=== PATIENT | male | born 1955 | race Caucasian/White ===

== ENCOUNTER 2019-12-10 02:39 | Inpatient (IN) ==
[2019-12-10] MEDS ORDERED: 0.9 % Sodium Chloride 1,000 ML IVC ONE (03:11)
[2019-12-10] MEDS ORDERED: Ipratropium/Albuterol Neb 3 ML IH ONE (03:12)
[2019-12-10] MEDS ORDERED: methylPREDNISolone 125 MG/2 ML VIAL IVP ONE (03:12)
[2019-12-10 03:21] LABS: Basophils % 0.3 %; Eosinophils % 0.3 %; Hematocrit 49.1 % (37.5-50.1); Immature Granulocytes % 0.3 % (0-4); Lymphocytes # 0.2 K/mcL (0.6-4.6); Lymphocytes % 2.1 %; Mean Corpuscular HGB Conc 32.6 g/dL (31.6-35.5); Mean Corpuscular Hemoglobin 29.7 pg (28.0-33.3); Mean Corpuscular Volume 91.1 fL (83.0-100.0); Mean Platelet Volume 10.3 fL (9.4-12.4); Monocytes # 0.2 K/mcL (0.0-1.3); Monocytes % 2.3 %; Neutrophils # 8.2 K/mcL (1.6-8.9); Platelet Count 156 K/mcL (140-400); Red Blood Count 5.39 M/mcL (4.19-5.50); Red Cell Distribution Width 13.9 % (11.5-14.5); Segmented Neutrophils % 94.7 %; White Blood Count 8.7 K/mcL (4.3-11.1)
[2019-12-10 03:42] LABS: Alanine Aminotransferase 20 Units/L (7-52); Albumin 4.1 g/dL (3.5-5.7); Albumin/Globulin Ratio 1.4 (1.1-2.2); Alkaline Phosphatase 93 Units/L (34-104); Aspartate Amino Transferase 18 Units/L (13-39); BUN/Creatinine Ratio 18 (6-26); Bilirubin,Direct 0.3 mg/dL (0.0-0.2); Bilirubin,Indirect 0.6 mg/dL (0.0-1.0); Bilirubin,Total 0.9 mg/dL (0.3-1.0); Blood Urea Nitrogen 18 mg/dL (8-23); Calcium 9.5 mg/dL (8.6-10.3); Carbon Dioxide 25 mEq/L (23-29); Chloride 99 mEq/L (98-107); Glucose 207 mg/dL (70-105); Magnesium 1.4 mg/dL (1.6-2.6); Osmolality,Calculated 284 (280-300); Potassium 4.1 mEq/L (3.5-5.1); Sodium 133 mEq/L (136-145); Total Protein 7.1 g/dL (6.4-8.9); Troponin I < 0.03 ng/mL (< 0.04); eGFR For African Americans > 60 (> 60); eGFR For Non-African Americans > 60 (> 60)
[2019-12-10 03:46] LABS: Platelet Estimate Decreased (Normal)
[2019-12-10 04:55] LABS: Bilirubin,Urine Small (Negative); Blood,Urine Negative (Negative); Clarity,Urine Clear (Clear); Color,Urine Dark Yellow (Yellow); Glucose,Urine (UA) 250 mg/dL (Normal); Ketones,Urine Trace mg/dL (Negative); Leukocyte Esterase,Urine Trace (Negative); Nitrite,Urine Negative (Negative); Protein,Urine 30 mg/dL (Neg-Trace); Specific Gravity,Urine > 1.030 (1.010-1.025); Urobilinogen,Urine Normal (Normal)
[2019-12-10 04:57] LABS: Bacteria,Urine None Seen per hpf (None-Few); Hyaline Casts,Urine None Seen per lpf (None-Few); Squamous Epithelial Cell,Urine Many per lpf (None-Few)
[2019-12-10] MEDS ORDERED: cefTRIAXone 1,000 MG in Water for inj. (sterile) 10 ML IVP ONE (05:47)
[2019-12-10] MEDS ORDERED: Azithromycin 500 MG in D5% in Water 250 ML IVPB ONE (05:47)
[2019-12-10] MEDS: DilTIAZem 50 MG in 0.9 % Sodium Chloride 40 ML IVC SCH ×6 (05:55→21:24)
[2019-12-10] MEDS: Norepinephrine 4 MG in 0.9 % Sodium Chloride 250 ML IVC SCH (06:11)
[2019-12-10] MEDS ORDERED: Furosemide 20 MG/2 ML VIAL IVP ONE (07:57)
[2019-12-10] MEDS ORDERED: D5% in Water 1,000 ML IVC PRN (09:45)
[2019-12-10] MEDS ORDERED: Naloxone 0.4 MG/ML INJ IVP PRN (09:45)
[2019-12-10] MEDS ORDERED: Acetaminophen 325 MG TABLET PO PRN (09:45)
[2019-12-10] MEDS ORDERED: *HR* Dextrose 50 % in Water (Syg) 50 ML SYRINGE IVP PRN (09:45)
[2019-12-10] MEDS ORDERED: Dextrose Gel 15 GM/37.5 ML TUBE PO PRN ×2 (09:45)
[2019-12-10] MEDS ORDERED: Vancomycin (wt based) 1,000 MG VIAL IVPB SCH (10:00)
[2019-12-10] MEDS: Gabapentin 100 MG CAPSULE PO SCH ×3 (11:16→19:50)
[2019-12-10] MEDS: Phenylephrine 20 MG in 0.9 % Sodium Chloride 500 ML IVC SCH (11:16)
[2019-12-10] MEDS: Insulin DETEMIR 100 UNIT/ML X5UNITS SQ SCH ×2 (11:21→19:42)
[2019-12-10] MEDS: Insulin LISPRO 300 UNITS/3 ML VIAL SQ SCH ×3 (11:22→19:41)
[2019-12-10] MEDS: 0.9 % Sodium Chloride 1,000 ML IVC SCH ×2 (11:34→13:07)
[2019-12-10 12:04] LABS: Adenovirus Not Detected (Not Detect); Bordetella Pertussis Not Detected (Not Detect); Chlamydophila pneumoniae Not Detected (Not Detect); Coronavirus 229E Not Detected (Not Detect); Coronavirus HKU1 Not Detected (Not Detect); Coronavirus NL63 Not Detected (Not Detect); Coronavirus OC43 Not Detected (Not Detect); Human Metapneumovirus Not Detected (Not Detect); Human Rhinovirus/Enterovirus Not Detected (Not Detect); Influenza A Subtype 2009 H1 Not Detected (Not Detect); Influenza B Not Detected (Not Detect); Mycoplasma pneumoniae Not Detected (Not Detect); Parainfluenza Virus 1 Not Detected (Not Detect); Parainfluenza Virus 2 Not Detected (Not Detect); Parainfluenza Virus 3 Not Detected (Not Detect); Parainfluenza Virus 4 Not Detected (Not Detect); Respiratory Syncytial Virus Not Detected (Not Detect)
[2019-12-10] MEDS: Levalbuterol Neb 1.25 MG/3 ML IH SCH ×3 (12:11→22:01)
[2019-12-10] MEDS ORDERED: Perflutren Lipid Microsphere 1.3 ML in 0.9 % Sodium Chloride 8.7 ML IVP ONE (12:40)
[2019-12-10] MEDS ORDERED: Leptospermum Honey Paste 1 APPL/5 ML MLS TP SCH (14:45)
[2019-12-10] MEDS: *HR* Rivaroxaban 10 MG TABLET PO SCH (16:32)
[2019-12-10] MEDS: Leptospermum Honey Paste 44 ML TUBE TP SCH (16:32)
[2019-12-11] MEDS: DilTIAZem 50 MG in 0.9 % Sodium Chloride 40 ML IVC SCH ×3 (01:35→22:45)
[2019-12-11] MEDS: Levalbuterol Neb 1.25 MG/3 ML IH SCH ×5 (03:32→22:13)
[2019-12-11 04:10] LABS: Basophils % 0.1 %; Hematocrit 44.8 % (37.5-50.1); Hemoglobin 14.9 g/dL (12.9-16.9); Immature Granulocytes % 0.5 % (0-4); Lymphocytes # 0.4 K/mcL (0.6-4.6); Lymphocytes % 2.9 %; Mean Corpuscular HGB Conc 33.3 g/dL (31.6-35.5); Mean Corpuscular Hemoglobin 30.2 pg (28.0-33.3); Mean Corpuscular Volume 90.9 fL (83.0-100.0); Mean Platelet Volume 10.6 fL (9.4-12.4); Monocytes # 0.8 K/mcL (0.0-1.3); Neutrophils # 12.6 K/mcL (1.6-8.9); Platelet Count 148 K/mcL (140-400); Red Blood Count 4.93 M/mcL (4.19-5.50); Red Cell Distribution Width 14.1 % (11.5-14.5); Segmented Neutrophils % 90.5 %; White Blood Count 13.9 K/mcL (4.3-11.1)
[2019-12-11 04:27] LABS: Alanine Aminotransferase 31 Units/L (7-52); Albumin 3.6 g/dL (3.5-5.7); Albumin/Globulin Ratio 1.2 (1.1-2.2); Alkaline Phosphatase 60 Units/L (34-104); Aspartate Amino Transferase 21 Units/L (13-39); BUN/Creatinine Ratio 27 (6-26); Bilirubin,Direct 0.2 mg/dL (0.0-0.2); Bilirubin,Indirect 0.5 mg/dL (0.0-1.0); Bilirubin,Total 0.7 mg/dL (0.3-1.0); Blood Urea Nitrogen 25 mg/dL (8-23); Calcium 8.4 mg/dL (8.6-10.3); Carbon Dioxide 23 mEq/L (23-29); Chloride 103 mEq/L (98-107); Globulin 2.9 g/dL (2.4-3.5); Glucose 280 mg/dL (70-105); Magnesium 1.7 mg/dL (1.6-2.6); Osmolality,Calculated 286 (280-300); Phosphorous 2.9 mg/dL (2.7-4.5); Potassium 4.2 mEq/L (3.5-5.1); Sodium 131 mEq/L (136-145); Total Protein 6.5 g/dL (6.4-8.9); eGFR For African Americans > 60 (> 60); eGFR For Non-African Americans > 60 (> 60)
[2019-12-11] MEDS: Insulin DETEMIR 100 UNIT/ML X5UNITS SQ SCH ×2 (07:27→20:13)
[2019-12-11] MEDS: Gabapentin 100 MG CAPSULE PO SCH ×3 (07:27→21:01)
[2019-12-11] MEDS: Insulin LISPRO 300 UNITS/3 ML VIAL SQ SCH ×4 (07:28→20:13)
[2019-12-11] MEDS: Norepinephrine 4 MG in 0.9 % Sodium Chloride 250 ML IVC SCH (07:28)
[2019-12-11] MEDS: Phenylephrine 20 MG in 0.9 % Sodium Chloride 500 ML IVC SCH (07:29)
[2019-12-11] MEDS ORDERED: MethylPREDNISolone 40 MG/ML VIAL IVP SCH (09:00)
[2019-12-11] MEDS ORDERED: Aminoglycoside Consult 1 EACH MC ONE (09:04)
[2019-12-11] MEDS ORDERED: Gabapentin 100 MG CAPSULE ONE (09:56)
[2019-12-11] MEDS ORDERED: Azithromycin 500 MG VIAL ONE (09:56)
[2019-12-11] MEDS ORDERED: CefTRIAXone 2,000 MG VIAL ONE (09:56)
[2019-12-11] MEDS ORDERED: Water for inj. (sterile) 20 ML VIAL IV ONE (09:56)
[2019-12-11] MEDS: cefTRIAXone 2,000 MG in Water for inj. (sterile) 20 ML IVP SCH (16:30)
[2019-12-11] MEDS: Azithromycin 500 MG in 0.9 % Sodium Chloride 250 ML IVPB SCH (16:30)
[2019-12-11] MEDS: Leptospermum Honey Paste 44 ML TUBE TP SCH (16:30)
[2019-12-11] MEDS: *HR* Rivaroxaban 10 MG TABLET PO SCH (17:41)
[2019-12-12] MEDS: Levalbuterol Neb 1.25 MG/3 ML IH SCH ×4 (03:47→21:08)
[2019-12-12] MEDS: DilTIAZem 50 MG in 0.9 % Sodium Chloride 40 ML IVC SCH ×5 (04:04→22:23)
[2019-12-12 05:55] LABS: Basophils % 0.1 %; Eosinophils % 0.1 %; Hemoglobin 15.4 g/dL (12.9-16.9); Immature Granulocytes % 0.8 % (0-4); Mean Corpuscular HGB Conc 33.5 g/dL (31.6-35.5); Mean Corpuscular Hemoglobin 30.7 pg (28.0-33.3); Mean Corpuscular Volume 91.6 fL (83.0-100.0); Mean Platelet Volume 10.7 fL (9.4-12.4); Monocytes # 1.1 K/mcL (0.0-1.3); Monocytes % 6.8 %; Neutrophils # 14.4 K/mcL (1.6-8.9); Platelet Count 156 K/mcL (140-400); Red Blood Count 5.02 M/mcL (4.19-5.50); Red Cell Distribution Width 14.2 % (11.5-14.5); Segmented Neutrophils % 86.2 %; White Blood Count 16.7 K/mcL (4.3-11.1)
[2019-12-12 06:14] LABS: BUN/Creatinine Ratio 37 (6-26); Blood Urea Nitrogen 42 mg/dL (8-23); Calcium 8.7 mg/dL (8.6-10.3); Carbon Dioxide 23 mEq/L (23-29); Chloride 101 mEq/L (98-107); Glucose 317 mg/dL (70-105); Magnesium 2.2 mg/dL (1.6-2.6); Osmolality,Calculated 297 (280-300); Phosphorous 4.2 mg/dL (2.7-4.5); Potassium 4.4 mEq/L (3.5-5.1); Sodium 132 mEq/L (136-145); eGFR For African Americans > 60 (> 60); eGFR For Non-African Americans > 60 (> 60)
[2019-12-12 06:34] LABS: Estimated Average Glucose 263 mg/dl
[2019-12-12] MEDS ORDERED: Furosemide 40 MG/4 ML VIAL IVP ONE (07:46)
[2019-12-12 08:12] LABS: ABG Base Excess -2 mEq/L (-2 to 3); ABG HCO3 24 mEq/L (21-27); ABG Oxygen Saturation 94 % (95-98); ABG PCO2 42 mmHg (35-45); ABG PH 7.35 pH Units (7.32-7.45); ABG PO2 74 mmHg (85-104); ABG TCO2 25 mEq/L (20-26)
[2019-12-12] MEDS: Gabapentin 100 MG CAPSULE PO SCH ×3 (08:55→20:27)
[2019-12-12] MEDS: Insulin LISPRO 300 UNITS/3 ML VIAL SQ SCH ×4 (08:55→20:28)
[2019-12-12] MEDS: Azithromycin 500 MG in 0.9 % Sodium Chloride 250 ML IVPB SCH (08:55)
[2019-12-12] MEDS: Insulin DETEMIR 100 UNIT/ML X5UNITS SQ SCH ×2 (08:55→20:28)
[2019-12-12] MEDS: cefTRIAXone 2,000 MG in Water for inj. (sterile) 20 ML IVP SCH (08:56)
[2019-12-12] MEDS: Leptospermum Honey Paste 44 ML TUBE TP SCH (08:56)
[2019-12-12] MEDS ORDERED: predniSONE 20 MG TABLET PO SCH (09:00)
[2019-12-12] MEDS ORDERED: DilTIAZem CD (24hr) 240 MG CAP.ER.24H PO SCH (09:00)
[2019-12-12] MEDS: Furosemide 40 MG/4 ML VIAL IVP SCH ×2 (10:40→22:23)
[2019-12-12] MEDS ORDERED: *HR* LORazepam 2 MG/ML VIAL IVP ONE (12:19)
[2019-12-12] MEDS ORDERED: Isovue-370 500 ML BOTTLE IVP ONE (12:57)
[2019-12-12] MEDS: Piperacillin/Tazobactam 3.375 GM in 0.9 % Sodium Chloride Mini Bag 100 ML IVPB SCH ×2 (17:08→23:20)
[2019-12-12] MEDS: *HR* Rivaroxaban 10 MG TABLET PO SCH (17:08)
[2019-12-12] MEDS ORDERED: Albumin 25% 25gram/100mL 25 GM/100 ML IV.SOLN IVPB ONE (21:00)
[2019-12-12 21:28] LABS: ABG Base Excess -2 mEq/L (-2 to 3); ABG HCO3 23 mEq/L (21-27); ABG Oxygen Saturation 92 % (95-98); ABG PCO2 37 mmHg (35-45); ABG PO2 63 mmHg (85-104); ABG TCO2 24 mEq/L (20-26)
[2019-12-13] MEDS: Levalbuterol Neb 1.25 MG/3 ML IH SCH ×4 (03:25→21:46)
[2019-12-13 06:03] LABS: Hematocrit 45.8 % (37.5-50.1); Hemoglobin 15.1 g/dL (12.9-16.9); Mean Corpuscular Hemoglobin 30.2 pg (28.0-33.3); Mean Corpuscular Volume 91.6 fL (83.0-100.0); Mean Platelet Volume 11.1 fL (9.4-12.4); Platelet Count 154 K/mcL (140-400); Red Cell Distribution Width 14.3 % (11.5-14.5); White Blood Count 14.2 K/mcL (4.3-11.1)
[2019-12-13 06:26] LABS: BUN/Creatinine Ratio 38 (6-26); Blood Urea Nitrogen 40 mg/dL (8-23); Carbon Dioxide 27 mEq/L (23-29); Chloride 100 mEq/L (98-107); Glucose 152 mg/dL (70-105); Osmolality,Calculated 297 (280-300); Potassium 3.7 mEq/L (3.5-5.1); Sodium 137 mEq/L (136-145); eGFR For African Americans > 60 (> 60); eGFR For Non-African Americans > 60 (> 60)
[2019-12-13] MEDS: Piperacillin/Tazobactam 3.375 GM in 0.9 % Sodium Chloride Mini Bag 100 ML IVPB SCH ×3 (07:49→23:53)
[2019-12-13] MEDS: Insulin DETEMIR 100 UNIT/ML X5UNITS SQ SCH ×2 (07:49→21:04)
[2019-12-13] MEDS: DilTIAZem 50 MG in 0.9 % Sodium Chloride 40 ML IVC SCH ×3 (07:50→18:07)
[2019-12-13] MEDS: Insulin LISPRO 300 UNITS/3 ML VIAL SQ SCH ×4 (07:50→21:04)
[2019-12-13] MEDS: Gabapentin 100 MG CAPSULE PO SCH ×3 (07:51→21:03)
[2019-12-13] MEDS: Leptospermum Honey Paste 44 ML TUBE TP SCH (07:51)
[2019-12-13] MEDS ORDERED: *HR* LORazepam 2 MG/ML VIAL IVP ONE (08:57)
[2019-12-13] MEDS ORDERED: Albumin 25% 25gram/100mL 25 GM/100 ML IV.SOLN IVPB ONE (09:00)
[2019-12-13] MEDS: Furosemide 40 MG/4 ML VIAL IVP SCH ×2 (09:28→21:03)
[2019-12-13] MEDS ORDERED: Metoprolol XL (24 HR) Succ 50 MG TAB.ER.24H PO SCH (09:30)
[2019-12-13] MEDS: *HR* Rivaroxaban 10 MG TABLET PO SCH (16:14)
[2019-12-14] MEDS: Levalbuterol Neb 1.25 MG/3 ML IH SCH ×4 (03:50→22:03)
[2019-12-14 05:47] LABS: Hematocrit 49.1 % (37.5-50.1); Hemoglobin 15.9 g/dL (12.9-16.9); Mean Corpuscular HGB Conc 32.4 g/dL (31.6-35.5); Mean Corpuscular Hemoglobin 29.7 pg (28.0-33.3); Mean Corpuscular Volume 91.8 fL (83.0-100.0); Mean Platelet Volume 10.8 fL (9.4-12.4); Platelet Count 166 K/mcL (140-400); Red Blood Count 5.35 M/mcL (4.19-5.50); Red Cell Distribution Width 14.1 % (11.5-14.5); White Blood Count 12.4 K/mcL (4.3-11.1)
[2019-12-14 06:00] LABS: BUN/Creatinine Ratio 34 (6-26); Blood Urea Nitrogen 36 mg/dL (8-23); Calcium 8.9 mg/dL (8.6-10.3); Carbon Dioxide 31 mEq/L (23-29); Chloride 100 mEq/L (98-107); Glucose 106 mg/dL (70-105); Osmolality,Calculated 295 (280-300); Potassium 3.6 mEq/L (3.5-5.1); Sodium 138 mEq/L (136-145); eGFR For African Americans > 60 (> 60); eGFR For Non-African Americans > 60 (> 60)
[2019-12-14] MEDS: Insulin LISPRO 300 UNITS/3 ML VIAL SQ SCH ×4 (09:04→20:46)
[2019-12-14] MEDS: Piperacillin/Tazobactam 3.375 GM in 0.9 % Sodium Chloride Mini Bag 100 ML IVPB SCH (09:14)
[2019-12-14] MEDS: Furosemide 40 MG/4 ML VIAL IVP SCH ×2 (09:14→20:23)
[2019-12-14] MEDS: Gabapentin 100 MG CAPSULE PO SCH ×3 (09:14→20:23)
[2019-12-14] MEDS: Insulin DETEMIR 100 UNIT/ML X5UNITS SQ SCH ×2 (09:14→20:46)
[2019-12-14] MEDS: predniSONE 20 MG TABLET PO SCH (09:14)
[2019-12-14] MEDS: Leptospermum Honey Paste 44 ML TUBE TP SCH (09:15)
[2019-12-14] MEDS: *HR* Rivaroxaban 10 MG TABLET PO SCH (16:34)
[2019-12-14] MEDS: *HR* Metoprolol 5 MG/5 ML VIAL IVP PRN (18:59)
[2019-12-14 20:41] LABS: Potassium 4.2 mEq/L (3.5-5.1)
[2019-12-15] MEDS ORDERED: 0.9 % Sodium Chloride 250 ML IVC ONE (01:47)
[2019-12-15] MEDS: *HR* Metoprolol 5 MG/5 ML VIAL IVP PRN (02:05)
[2019-12-15] MEDS: Levalbuterol Neb 1.25 MG/3 ML IH SCH ×4 (03:51→21:47)
[2019-12-15 04:57] LABS: Hemoglobin 15.8 g/dL (12.9-16.9); Mean Corpuscular HGB Conc 33.6 g/dL (31.6-35.5); Mean Corpuscular Hemoglobin 30.4 pg (28.0-33.3); Mean Corpuscular Volume 90.6 fL (83.0-100.0); Mean Platelet Volume 10.9 fL (9.4-12.4); Platelet Count 175 K/mcL (140-400); Red Blood Count 5.19 M/mcL (4.19-5.50); Red Cell Distribution Width 13.8 % (11.5-14.5); White Blood Count 15.7 K/mcL (4.3-11.1)
[2019-12-15 05:16] LABS: BUN/Creatinine Ratio 40 (6-26); Blood Urea Nitrogen 42 mg/dL (8-23); Calcium 9.4 mg/dL (8.6-10.3); Carbon Dioxide 31 mEq/L (23-29); Chloride 100 mEq/L (98-107); Glucose 134 mg/dL (70-105); Osmolality,Calculated 298 (280-300); Sodium 138 mEq/L (136-145); eGFR For African Americans > 60 (> 60); eGFR For Non-African Americans > 60 (> 60)
[2019-12-15] MEDS: predniSONE 20 MG TABLET PO SCH (07:36)
[2019-12-15] MEDS: Gabapentin 100 MG CAPSULE PO SCH ×3 (07:36→21:08)
[2019-12-15] MEDS: Furosemide 40 MG/4 ML VIAL IVP SCH ×2 (07:36→17:35)
[2019-12-15] MEDS: Insulin LISPRO 300 UNITS/3 ML VIAL SQ SCH ×4 (07:36→21:08)
[2019-12-15] MEDS: Insulin DETEMIR 100 UNIT/ML X5UNITS SQ SCH ×2 (07:38→21:07)
[2019-12-15] MEDS: Leptospermum Honey Paste 44 ML TUBE TP SCH (07:39)
[2019-12-15] MEDS ORDERED: DilTIAZem CD (24hr) 120 MG CAP.ER.24H PO SCH (09:00)
[2019-12-15] MEDS ORDERED: Furosemide 40 MG/4 ML VIAL IVP SCH (09:00)
[2019-12-15] MEDS ORDERED: *HR* Digoxin 0.5 MG/2 ML AMPUL IVP ONE (09:45)
[2019-12-15] MEDS ORDERED: Furosemide 40 MG/4 ML VIAL IVP ONE (10:13)
[2019-12-15] MEDS ORDERED: DilTIAZem CD (24hr) 120 MG CAP.ER.24H PO ONE (10:30)
[2019-12-15] MEDS: *HR* Rivaroxaban 10 MG TABLET PO SCH (17:36)
[2019-12-16] MEDS: Levalbuterol Neb 1.25 MG/3 ML IH SCH ×4 (03:32→22:12)
[2019-12-16 05:43] LABS: Basophils # 0.1 K/mcL (0.0-0.2); Basophils % 0.5 %; Eosinophils # 0.2 K/mcL (0.0-0.6); Eosinophils % 1.3 %; Hematocrit 48.2 % (37.5-50.1); Immature Granulocytes % 1.6 % (0-4); Lymphocytes # 2.8 K/mcL (0.6-4.6); Lymphocytes % 17.7 %; Mean Corpuscular HGB Conc 33.2 g/dL (31.6-35.5); Mean Corpuscular Hemoglobin 30.7 pg (28.0-33.3); Mean Corpuscular Volume 92.5 fL (83.0-100.0); Mean Platelet Volume 11.1 fL (9.4-12.4); Monocytes # 1.3 K/mcL (0.0-1.3); Monocytes % 8.2 %; Neutrophils # 11.4 K/mcL (1.6-8.9); Platelet Count 193 K/mcL (140-400); Red Blood Count 5.21 M/mcL (4.19-5.50); Segmented Neutrophils % 70.7 %; White Blood Count 16.1 K/mcL (4.3-11.1)
[2019-12-16 06:03] LABS: BUN/Creatinine Ratio 42 (6-26); Blood Urea Nitrogen 38 mg/dL (8-23); Calcium 9.4 mg/dL (8.6-10.3); Carbon Dioxide 33 mEq/L (23-29); Chloride 99 mEq/L (98-107); Glucose 152 mg/dL (70-105); Magnesium 2.1 mg/dL (1.6-2.6); Osmolality,Calculated 298 (280-300); Phosphorous 3.9 mg/dL (2.7-4.5); Potassium 4.1 mEq/L (3.5-5.1); Sodium 138 mEq/L (136-145); eGFR For African Americans > 60 (> 60); eGFR For Non-African Americans > 60 (> 60)
[2019-12-16] MEDS: Furosemide 40 MG/4 ML VIAL IVP SCH ×2 (06:08→17:01)
[2019-12-16] MEDS: Insulin LISPRO 300 UNITS/3 ML VIAL SQ SCH ×4 (08:20→20:06)
[2019-12-16] MEDS: Gabapentin 100 MG CAPSULE PO SCH ×3 (08:20→20:06)
[2019-12-16] MEDS: Insulin DETEMIR 100 UNIT/ML X5UNITS SQ SCH ×2 (08:24→20:06)
[2019-12-16] MEDS ORDERED: predniSONE 20 MG TABLET PO SCH (09:00)
[2019-12-16] MEDS ORDERED: *HR* Digoxin 0.25 MG TABLET PO SCH (09:00)
[2019-12-16] MEDS ORDERED: DilTIAZem CD (24hr) 120 MG CAP.ER.24H PO SCH (09:00)
[2019-12-16] MEDS: Leptospermum Honey Paste 44 ML TUBE TP SCH (10:31)
[2019-12-16] MEDS: *HR* Rivaroxaban 10 MG TABLET PO SCH (17:00)
[2019-12-16] MEDS ORDERED: Insulin LISPRO 300 UNITS/3 ML VIAL SQ SCH (17:00)
[2019-12-17] MEDS: Levalbuterol Neb 1.25 MG/3 ML IH SCH (03:58)
[2019-12-17] MEDS: Furosemide 40 MG/4 ML VIAL IVP SCH (05:15)
[2019-12-17 06:19] LABS: BUN/Creatinine Ratio 37 (6-26); Blood Urea Nitrogen 35 mg/dL (8-23); Calcium 9.5 mg/dL (8.6-10.3); Carbon Dioxide 33 mEq/L (23-29); Chloride 98 mEq/L (98-107); Glucose 99 mg/dL (70-105); Magnesium 1.9 mg/dL (1.6-2.6); Osmolality,Calculated 294 (280-300); Phosphorous 3.7 mg/dL (2.7-4.5); Potassium 4.1 mEq/L (3.5-5.1); Sodium 138 mEq/L (136-145); eGFR For African Americans > 60 (> 60); eGFR For Non-African Americans > 60 (> 60)
[2019-12-17 06:56] VITALS: BP 105/75
[2019-12-17] MEDS ORDERED: Metoprolol 100 MG TABLET PO SCH (09:00)
[2019-12-17] MEDS ORDERED: Metoprolol XL (24 HR) Succ 50 MG TAB.ER.24H PO SCH (09:00)
== END 2019-12-17 09:17 | disposition left against medical advice (07) | DRG 720 ==
LOC: EMEROOARM 02:39 → ICNU 08:46 → SUATTDRO 09:28 → ICNU 09:29 → 2ANU 12-11 16:00
PROVIDERS: ADMIT Pediatrics; ATTEND Internal Medicine